=== PATIENT | male | born 1980 | race Caucasian/White ===

== ENCOUNTER 2022-10-25 15:25 | Emergency (ER) | payer MEDICAID ==
[~2022-10-25] VITALS: Ht 170.2 cm; Wt 105.6 kg
[2022-10-25 16:06] VITALS: TEMP 98.6
[2022-10-25 19:24] VITALS: BP 113/76; PULSE 62; RESP 18; O2SAT 96
== END 2022-10-25 20:16 | disposition home or self-care (01) ==
LOC: ER 15:27
DX: S80.02XA Contusion of left knee, initial encounter (principal); X58.XXXA Exposure to other specified factors, initial encounter; Y93.89 Activity, other specified; Y92.89 Other specified places as the place of occurrence of the external cause; Y99.8 Other external cause status
CPT/HCPCS: 73560; 93971; 99284